=== PATIENT | female | born 2000 | race Two or more races ===

== ENCOUNTER 2023-08-07 07:57 | Outpatient (OUT) | payer OTHER, SELFPAY ==
[2023-08-07 09:26] LABS: Thyroid Stimulating Hormone 1.615 uIU/mL (0.358-3.740)
== END 2023-08-07 07:58 | disposition home or self-care (01) ==
LOC: LAB 08:00
PROVIDERS: PCP Family Medicine
DX: L63.8 Other alopecia areata (principal)
CPT/HCPCS: 36415; 84443

== ENCOUNTER 2024-05-13 21:45 | Emergency (ER) | payer OTHER, SELFPAY ==
[2024-05-13 21:49] VITALS: BP 140/87; PULSE 88; TEMP 36.5; O2SAT 100; BMI 28.3
--- OUTSIDE RECORDS SUMMARY | 2024-05-13 21:57 | XMS_ITS | CCD ---
Author Organization [facility] Care Team Providers Care Ammonia Box Operator Name Role Phone BIANCA, DR PUGA Attending Unavailable BIANCA, DR PUGA Consulting Unavailable BIANCA, DR PUGA Primary Care Unavailable BIANCA, DR PUGA Admitting Unavailable Allergies Allergy Classification Reported Allergen(s) Allergy Type Date of Onset Reaction(s) Facility (1 source) Penicillins Drug allergy (disorder) 10-12-2014 [facility] Repository Problems Active Problems Problem Classification Problem Date Documented Da te Episodic/Chronic Unclassified (2 sources) CONTACT W/AND (SUSP) EXPOS COVID-19; Translations: [CONTACT W/AND (SUSP) EXPOS COVID-19] Onset: 05-19-2021 Unclassified (1 source) COUGH, UNSPECIFIED; Translations: [COUGH, UNSPECIFIED] Onset: 05-19-2021 Viral infection (1 source) COVID-19; Translations: [COVID-19] Onset: 05-19-2021 Past or Other Problems Problem Classification Problem Date Documented Da te Episodic/Chronic Unclassified (1 source) CONTACT W/AND (SUSP) EXPOS COVID-19; Translations: [CONTACT W/AND (SUSP) EXPOS COVID-19] Onset: 05-14-2021 Results Test Name Value Interpretation Reference Range Facil ity Provider Letteron 07-12-2022 Provider Letter July 12, 2022 ASHLEY CHAUHAN [address] [phone] To Whom It May Concern, Please excuse above patient from work. Date of Illness: On: 07/12/2022 May Return to Work On: 07/13/2022 Sincerely, Eugene Granger [employer] TRIMMER[facility] [place] [address] [place] [address] [address] [facility] [place] [address] [facility] Provider Letter July 12, 2022 ASHLEY CHAUHAN [address] [facility] [address] [place] [phone] To Whom It May Concern, Please excuse above patient from work. Date of Illness: On: 07/12/2022 May Return to Work On: 07/13/2022 Sincerely, Eugene Granger ED[facility] TRIMMER[facility] [place] [address] [place] [address] [facility] Covid-19 PCR (CVDTBH)on 04-17 SARS-CoV-2 (COVID-19) RNA IRLANDA+probe Ql (Unsp spec) Detected Critically abnormal NOT DETECTED [facility] Comment on above: Result Comment: This test is not yet oralia roved or cleared by the [place] FDA. When there are no FDA-approved or cleared tests available, and other criteria are met, FDA can make tests available under an emergency access mechanism called an Emergency Use Authorization (EUA). The EUA for this test is supported by the Patient Liaison of Health and Human Service's (HHS's) declaration that circumstances exist to justify the emergency use of in vitro diagnostics for the detection and/or diagnosis of the virus that causes COVID-19. This EUA will remain in effect (meaning this test can be used) for the duration of the COVID-19 declaration justifying emergency of IVDs, unless it is terminated or revoked by FDA (after which the test may no longer be used). Performed By: #### C [facility] #### [facility] [id number] Paulino Burk Encounters Encounter Date Encounter Type Care Provider Facility Start: 07-22-2022 ambulatory Facility:[facility] Start: 05-14-2021 End: 05-14-[address] EDD VALENZUELA Facility: Payers Date Payer Category Payer Unknown [id number] 1960 Private Health Insurance [id number] Summary Purpose Family History No Family History Records FoundNo Family History Records Found Advance Directives No Advanced Directives Records FoundNo Advanced Directives Records Found Additional Source Comments INFORMATION SOURCE (unrecogn ized section and content) DATE CREATED AUTHOR 07/26/2021 [facility] DATE CREATED AUTHOR AUTHOR'S CHELSI ALMANZAR 07/23/2022 [facility] FOR RECORDS PERTAINING TO PATIENTS WHO ARE OR HAVE BEEN ENROLLED IN A CHEMICAL DEPENDENCY/SUBSTANCEABUSE PROGRAM, SOME INFORMATION MAY BE OMITTED. This clinical summary was aggregated from multiple sources. Caution should be exercised in using it in the provision of clinical care. This summary normalizes information from multiple sources, and as a consequence, information in this document may materially change the coding, format and clinical context of patient data. In addition, data may be omitted in some cases. CLINICAL DECISIONS SHOULD BE BASED ON THE PRIMARY CLINICAL RECORDS. [employer] provides no warranty or guarantee of the accuracy or completeness of information in this document.
--- NOTE | 2024-05-13 22:04 | XR_ITS ---
The [address] [address] Patient Name: ASHLEY CHAUHAN MRN: [id number] date: 2000 Sex: F Assigned Patient Location: ER Current Patient Location: ER Accession/Order Number: [id number] Exam Date: 05/13/2024 22:16 Report Date: 05/13/2024 23:15 At the request of: BRYSON MARKER Procedure: XR wrist LT min 3V EXAM: XR wrist LT min 3V HISTORY: The patient is a 24-year-old female, wrist and elbow injury s/p fall COMPARISON: None. FINDINGS: The left wrist is radiographically negative with no evidence of fracture, dislocation, cortical discontinuities, or other osseous or articular abnormalities. XR/XR wrist LT min 3V IMPRESSION: Negative. Electronically authenticated by: SHELBI DA SILVA Date: 05/13/2024 23:15
--- NOTE | 2024-05-13 22:04 | XR_ITS ---
The [address] [address] Patient Name: ASHLEY CHAUHAN MRN: [id number] date: 2000 Sex: F Assigned Patient Location: ER Current Patient Location: ER Accession/Order Number: [id number] Exam Date: 05/13/2024 22:16 Report Date: 05/13/2024 23:14 At the request of: BRYSON MARKER Procedure: XR elbow LT 2V EXAM: XR elbow LT 2V HISTORY: The patient is a 24-year-old female, elbow injury w/p fall COMPARISON: None. FINDINGS: The AP view demonstrates a small old well-corticated ossicle just distal to the medial epicondyle. This does not have the appearance of an acute fracture. 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 Otherwise, these 2 views of the left elbow are radiographically negative with no evidence of acute fractures, dislocation, fat pad elevation, or other acute osseous or articular abnormalities. XR/XR elbow LT 2V IMPRESSION: No acute osseous or articular abnormalities of the left elbow. Electronically authenticated by: SHELBI DA SILVA Date: 05/13/2024 23:14
--- NOTE | 2024-05-13 22:04 | CT_ITS ---
The [address] [address] Patient Name: ASHLEY CHAUHAN MRN: [id number] date: 2000 Sex: F Assigned Patient Location: ER Current Patient Location: ED.MAIN Accession/Order Number: [id number] Exam Date: 05/13/2024 22:16 Report Date: 05/13/2024 22:58 At the request of: BRYSON MARKER Procedure: CT head/brain wo con EXAM: CT head/brain wo con HISTORY: head injury w LOC COMPARISON: None. TECHNIQUE: Axial CT scans through the head were obtained without IV contrast administration. Dose reduction techniques were achieved by using: automated exposure control and/or adjustment of mA and /or kV according to patient size and/or use of iterative reconstruction technique. FINDINGS: There is no acute intracranial hemorrhage or abnormal extra-axial fluid collection. No mass effect or midline shift is seen. There is no evidence of large acute territorial infarction. There is no hydrocephalus. To the limit of CT, the posterior fossa appears unremarkable. The calvaria and extra cranial soft tissues are unremarkable. The visualized orbits show no abnormality. The visualized paranasal sinuses show no air-fluid level. Mastoid air cells are clear. CT/CT head/brain wo con IMPRESSION: No acute intracranial process. Electronically authenticated by: BAN VINCENT Date: 05/13/2024 22:58
--- NOTE | 2024-05-13 22:07 | ED_ITS ---
HPI HPI - Fall General Chief Complaint: Fall Stated Complaint: fall, head/arm injury-pt did pass out Time Seen by Provider: 05/13/24 21:51 Source: patient Mode of arrival: Wheelchair Limitations: no limitations History of Present Illness HPI Narrative: This 24-year-old female who is right-hand dominant presents for evaluation of a left wrist and elbow injury. She also has a posterior headache. The patient and her sisters were making a TikTok video in which they were holding out their arms and she was supposed to jump into their outstretched arms. It is unclear exactly what happened but they did not catch her and she ended up flying into a wall and striking her head against the wall. She indented the wall with her head. She was briefly unconscious. She has a posterior headache. She has no neck or back pain. She also likely struck her left wrist and elbow on a bench that was underneath the wall. She presents for evaluation of left elbow pain with decreased range of motion and pain in her left wrist. She denies the possibility of . She has not had any seizure activity. She was ambulatory after the fall. Related Data Home Medications ?Medication ?Instructions ?Recorded ?Confirmed No Known Home Medications 05/13/24 05/13/24 Allergies Allergy/AdvReac Type Severity Reaction Status Date / Time Penicillins Allergy unkown Verified 05/13/24 21:54 Opioid HPI Opioid Management Most Recent Pain and Opioid Data: Last Pain Scale 5 05/13/24 23:00 05/13/24 Last ED Pain Assessment 05/13/24 23:00 Review of Systems ROS Narrative Vital signs and Nursing Notes reviewed: Patient is afebrile with a normal pulse, blood pressure is mildly elevated 140/87, she is not hypoxic with pulse ox of 100% on room air General: Awake, alert, oriented, GCS 15, tearful female, no respiratory distress HEENT: Normocephalic, tenderness to palpation at the posterior scalp without notable step-off, hematoma, laceration or other abnormality Neck: Supple, no midline bony vertebral tenderness or step-off Chest: Lungs are clear to auscultation with good air entry, there is no wheezing rhonchi or rales appreciated no accessory muscle use, patient is speaking in complete sentences-no chest wall tenderness to palpation CVS: Regular rate and rhythm S1-S2, no murmurs rubs or gallops, pulses are brisk and equal bilaterally ABD: Soft, nondistended, nontender, no rebound guarding or rigidity, bowel sounds are normal, no pulsatile masses appreciated Extremities: Mild tenderness to the left distal radius. Patient resists range of motion. Fingers are warm and sensate. Radial pulses brisk and equal. There is also mild tenderness and swelling at the olecranon. Patient is able to fully flex but not fully extend at the elbow. No bony deformity noted in either the radius or elbow area. Skin: Normal in appearance without rash,pallor, petechiae or purpura Neuro: No focal deficits Exam Constitutional Vital Signs, click to edit/add: Last Vital Signs Temp 97.7 F 05/13/24 21:49 Pulse 88 05/13/24 21:49 Resp 14 05/13/24 21:49 BP 140/87 05/13/24 21:49 Pulse Ox 100 05/13/24 21:49 O2 Del Method Room Air 05/13/24 21:49 Course Vital Signs Vital signs: Vital Signs Temperature 97.7 F 05/13/24 21:49 Pulse Rate 88 05/13/24 21:49 Respiratory Rate 14 05/13/24 21:49 Blood Pressure 140/87 05/13/24 21:49 Pulse Oximetry 100 05/13/24 21:49 Oxygen Delivery Method Room Air 05/13/24 21:49 Temperature 97.7 F 05/13/24 21:49 Pulse Rate 88 05/13/24 21:49 Respiratory Rate 14 05/13/24 21:49 Blood Pressure 140/87 05/13/24 21:49 Pulse Oximetry 100 05/13/24 21:49 Oxygen Delivery Method Room Air 05/13/24 21:49 MDM - Fall MDM Narrative Medical decision making narrative: This 24-year-old female is brought to the emergency department for evaluation of a head injury and left wrist and elbow pain. The patient and her sisters were making a video in which she was supposed to jump into their arms but they were unable to catch her and she ended up striking her head on a wall causing an indentation in the wall. It is thought that she may have also struck her left wrist and elbow on a bench that was underneath the wall. She had brief loss of consciousness and her eyes rolled back in her head and then regained consciousness. She has not had any seizure activity or vomiting. Her neuroexam is normal. She has some tenderness with decreased range of motion in her left wrist and elbow. She was given a dose of IM morphine and oral Zofran to prevent nausea from the morphine. CT scan of her brain is negative for acute findings and x-rays of the left wrist and forearm were read by radiology as normal. She was placed in a Hernandez wrap over her left wrist for comfort and compression. After the morphine she has full range of motion of her left elbow which is in keeping with the normal x-rays and normal physical exam. I discussed with her she may have a concussion with some concussive symptoms for a period of time. I encouraged her to rest, drink plenty of fluids and she will be discharged home with 2 [place] to take as needed for pain as I felt that NSAIDs in light of a head injury was not a good idea at this time. Head injury instructions were given to the patient and her family. Medical Records Medical records narrative: The [place] [id number] Scan Report Signed Patient: ASHLEY CHAUHAN MR#: [id number] : 2000 Acct:[id number] Age/Sex: 24 / F ADM Date: 05/13/24 Loc: ER Attending Dr: Ordering Physician: Maya Arias Date of Service: 05/13/24 Procedure(s): CT head/brain wo con Accession Number(s): [id number] cc: EDD VALENZUELA ~ The [address] [address] Patient Name: ASHLEY CHAUHAN MRN: [facility]:[id number] date: 2000 Sex: F Assigned Patient Location: ER Current Patient Location: ED.MAIN Accession/Order Number: [id number] Exam Date: 05/13/2024 22:16 Report Date: 05/13/2024 22:58 At the request of: MAYA ARIAS Procedure: CT head/brain wo con EXAM: CT head/brain wo con HISTORY: head injury w LOC COMPARISON: None. TECHNIQUE: Axial CT scans through the head were obtained without IV contrast administration. Dose reduction techniques were achieved by using: automated exposure control and/or adjustment of mA and /or kV according to patient size and/or use of iterative reconstruction technique. FINDINGS: There is no acute intracranial hemorrhage or abnormal extra-axial fluid collection. No mass effect or midline shift is seen. There is no evidence of large acute territorial infarction. There is no hydrocephalus. To the limit of CT, the posterior fossa appears unremarkable. The calvaria and extra cranial soft tissues are unremarkable. The visualized orbits show no abnormality. The visualized paranasal sinuses show no air-fluid level. Mastoid air cells are clear. CT/CT head/brain wo con IMPRESSION: No acute intracranial process. The [address] [address] XRay Report Signed Patient: ASHLEY CHAUHAN MR#: [id number] : 2000 Acct:[id number] Age/Sex: 24 / F ADM Date: 05/13/24 Loc: ER Attending Dr: Ordering Physician: Maya Arias Date of Service: 05/13/24 Procedure(s): XR elbow LT 2V Accession Number(s): [id number] cc: EDD VALENZUELA ; Maya Arias~ The [address] [address] Patient Name: ASHLEY CHAUHAN MRN: [id number] date: 2000 Sex: F Assigned Patient Location: ER Current Patient Location: ER Accession/Order Number: [id number] Exam Date: 05/13/2024 22:16 Report Date: 05/13/2024 23:14 At the request of: MAYA MARKER Procedure: XR elbow LT 2V EXAM: XR elbow LT 2V HISTORY: The patient is a 24-year-old female, elbow injury w/p fall COMPARISON: None. FINDINGS: The AP view demonstrates a small old well-corticated ossicle just distal to the medial epicondyle. This does not have the appearance of an acute fracture. 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 Otherwise, these 2 views of the left elbow are radiographically negative with no evidence of acute fractures, dislocation, fat pad elevation, or other acute osseous or articular abnormalities. XR/XR elbow LT 2V IMPRESSION: No acute osseous or articular abnormalities of the left elbow. The [address] [address] XRay Report Signed Patient: ASHLEY CHAUHAN MR#: [id number] : 2000 Acct:[id number] Age/Sex: 24 / F ADM Date: 05/13/24 Loc: ER Attending Dr: Ordering Physician: Maya Arias Date of Service: 05/13/24 Procedure(s): XR wrist LT min 3V Accession Number(s): [id number] cc: EDD VALENZUELA ; Maya Arias~ The [address] [address] Patient Name: ASHLEY CHAUHAN MRN: [id number] date: 2000 Sex: F Assigned Patient Location: ER Current Patient Location: ER Accession/Order Number: [id number] Exam Date: 05/13/2024 22:16 Report Date: 05/13/2024 23:15 At the request of: MAYA MARKER Procedure: XR wrist LT min 3V EXAM: XR wrist LT min 3V HISTORY: The patient is a 24-year-old female, wrist and elbow injury s/p fall COMPARISON: None. FINDINGS: The left wrist is radiographically negative with no evidence of fracture, dislocation, cortical discontinuities, or other osseous or articular abnormalities. XR/XR wrist LT min 3V IMPRESSION: Negative. Electronically authenticated by: SHELBI DA SILVA Date: 05/13/2024 23:15 Discharge Plan Discharge Chief Complaint: Fall Clinical Impression: Concussion with loss of consciousness, Left wrist sprain, Contusion of elbow, left, Closed head injury Patient Disposition: Home, Self-Care Time of Disposition Decision: 23:24 Condition: Good Prescriptions / Home Meds: No Action No Known Home Medications Print Language: Uzbek Instructions: Wrist Injury (ED), Sprain (ED), Head Injury (ED), Contusion in Adults (ED) Referrals: EDD VALENZUELA [Primary Care Provider] - 1 week
[2024-05-13] MEDS: ONDANSETRON 4 MG RAPDIS TABLET SL (22:23)
[2024-05-13] MEDS: MORPHINE SULFATE 4 MG/ML VIAL IM (22:24)
[2024-05-13] MEDS: HYDROCODONE/ACET 5-325 MG TABLET 2 TAB PO (23:30)
== END 2024-05-13 23:40 | disposition home or self-care (01) ==
PROVIDERS: Emergency Provider Emergency Medicine; PCP Family Medicine
DX: S06.0X1A Concussion with loss of consciousness of 30 minutes or less, initial encounter (principal); S63.502A Unspecified sprain of left wrist, initial encounter; S50.02XA Contusion of left elbow, initial encounter; W22.01XA Walked into wall, initial encounter
CPT/HCPCS: 70450; 73070; 73110; 96372; 99284; J2270; Q0162

== ENCOUNTER 2024-10-10 16:39 | Emergency (ER) | payer OTHER, SELFPAY ==
[2024-10-10 16:47] VITALS: BP 118/72; PULSE 82; TEMP 37; O2SAT 100; BMI 28.3
--- NOTE | 2024-10-10 17:04 | ED.FEMALEGU1 ---
HPI - Female Genitourinary General Chief complaint: Vaginal Bleeding Stated complaint: Bleeding VAGINAL Time Seen by Provider: 10/10/24 16:53 Source: patient Mode of arrival: walk-in Limitations: no limitations History of Present Illness HPI Narrative: Patient is a 24-year-old female presents to the ER with concerns of irregular vaginal bleeding. Patient states she is sexually active she has never been . Home test have been negative. She denies any control use. She reports bleeding for 10 days last month and for this month has been bleeding for 16 days. She reports her normal cycle was only 4 to 5 days of bleeding. She has been using light tampons changing approximately every 4-5 hours but they are not fully saturated. She denies any pelvic pain or vaginal discharge. She denies any dysuria. Patient is unsure of why her periods have become irregular. Patient notes a week ago so ago she did pass a clot that was a larger. Patient appears nervous about the possibility of irregular menses. MD elicited complaint: Reports vaginal bleeding; Denies dysuria, UTI , vaginal discharge, pelvic pain, genital swelling, flank pain or urinary incontinence Pertinent past history: Denies prior miscarriages Onset (ago): hour(s) Female Urogenital Radiation: Denies Non-Radiating Quality of pain: Denies cramping or sharp Consistency: Denies constant Vaginal discharge: Denies none or white Vaginal bleeding: Reports scant Urinary symptoms: Denies Dysuria or Urgency Exacerbating factors: Denies none Associated symptoms: Denies denies other symptoms Treatment prior to arrival: Denies none Sexual activity: Reports Yes Patient : No Possible : Reports at home test negative Related Data Home Medications ?Medication ?Instructions ?Recorded ?Confirmed No Known Home Medications 05/13/24 10/10/24 Allergies Allergy/AdvReac Type Severity Reaction Status Date / Time Penicillins Allergy unkown Verified 05/13/24 21:54 Review of Systems ROS Constitutional Denies: fever or chills Eyes Denies: change in vision or blurry vision Ears, nose, mouth, and throat Denies: throat pain or neck pain Cardiovascular Denies: chest pain or palpitations Respiratory Denies: shortness of breath or cough Gastrointestinal Denies: abdominal pain, nausea or vomiting Genitourinary Reports: vaginal bleeding and irregular period; Denies: painful urination, urinary frequency, urinary urgency or vaginal discharge Musculoskeletal Denies: back pain or neck pain Integumentary/Breast Denies: rash or itching Neurological Denies: headache Psychiatric Denies: anxiety Endocrine Denies: excessive urination PFSH PFSH Social History Little interest or pleasure in doing things: not at all Feeling down, depressed, or hopeless: not at all Exam Narrative Exam Narrative: Nurses notes and vital signs reviewed and patient is not hypoxic. General: The patient appears well and in no apparent distress. Patient is resting comfortably on cart. Skin: Warm, dry, no pallor noted. Head: Normocephalic, atraumatic Neck: Supple, trachea mid-line, no tenderness, no lymphadenopathy Eye: Pupils are equal, round and reactive to light, EOMI Ears, Nose, Mouth, and Throat: External exam unremarkable Cardiovascular: Regular Rate and Rhythm Respiratory: Patient is in no distress, no accessory muscle use, lungs are clear to auscultation, no wheezing, rales or rhonchi. Chest Wall: no tenderness Back: non-tender, no CVA tenderness Musculoskeletal: normal ROM, no tenderness, no swelling GI: Normal bowel sounds, no tenderness to palpation, no masses appreciated. No rebound, guarding, or rigidity noted. She denies pelvic pain Neurological: A&O x4 Psychiatric: Cooperative Constitutional Vital Signs, click to edit/add: Last Vital Signs Temp 98.6 F 10/10/24 16:47 Pulse 82 10/10/24 16:47 Resp 16 10/10/24 16:47 BP 118/72 10/10/24 16:47 Pulse Ox 100 10/10/24 16:47 O2 Del Method Room Air 10/10/24 16:47 Course Vital Signs Vital signs: Vital Signs Temperature 98.6 F 10/10/24 16:47 Pulse Rate 82 10/10/24 16:47 Respiratory Rate 16 10/10/24 16:47 Blood Pressure 118/72 10/10/24 16:47 Pulse Oximetry 100 10/10/24 16:47 Oxygen Delivery Method Room Air 10/10/24 16:47 Temperature 98.6 F 10/10/24 16:47 Pulse Rate 82 10/10/24 16:47 Respiratory Rate 16 10/10/24 16:47 Blood Pressure 118/72 10/10/24 16:47 Pulse Oximetry 100 10/10/24 16:47 Oxygen Delivery Method Room Air 10/10/24 16:47 MDM - Female Genitourinary MDM Narrative Medical decision making narrative: Patient presents with history of recent abnormal uterine bleeding. She denies any pelvic pain or discomfort. She has taken home test have been negative. She is concerned with passage of a clot last week and states she is currently just spotting. She does not see an LEGAL DEPARTMENT MANAGER. She appears concerned about the possibility of but otherwise in no distress. CBC and hCG quant/ urinalysis discussed. No evidence of . We discussed her irregular vaginal bleeding. She denies any pelvic pain or discharge she declines pelvic exam today with procedure discussed. Patient thankful for lab work performed agrees to follow-up with local industrial spraypainter for ongoing evaluation and potential treatments. The patient is to followup with OBGYN as soon as possible for eval within the week would be ok. . primary care physician in next 5-7 days or to return to the emergency department should any of the signs or symptoms worsen or new symptoms develop. Patient had questions answered. The patient agrees with the following Diagnosis and Treatment plan and the patient will be discharged home. Lab Data Attestation: I reviewed the patient's lab results. Labs: Lab Results 10/10/24 10/10/24 Range/Units 17:05 17:10 WBC 8.6 (4.0-11.0) 10^3/uL RBC 4.34 (4.20-5.40) 10^6/uL Hgb 13.8 (12.0-16.0) g/dL Hct 41.0 (36.0-48.0) % MCV 94.5 (81.0-99.0) fL MCH 31.8 (26.7-34.0) pg MCHC 33.7 (29.9-35.2) g/dL RDW 12.9 (11.0-15.0) % Plt Count 340 (150-450) 10^3/uL MPV 9.6 (9.5-13.5) fL Neut % (Auto) 57.1 (43.0-75.0) % Lymph % (Auto) 32.2 (20.5-60.0) % Caroline % (Auto) 7.0 (1.7-12.0) % Eos % (Auto) 3.1 (0.9-7.0) % Baso % (Auto) 0.5 (0.2-2.0) % Neut # (Auto) 4.9 (1.4-6.5) 10^3/uL Lymph # (Auto) 2.8 (1.2-3.8) 10^3/uL Caroline # (Auto) 0.6 (0.3-0.8) 10^3/uL Eos # (Auto) 0.3 (0.0-0.7) 10^3/uL Baso # (Auto) 0.0 (0.0-0.1) 10^3/uL Abs Immat Gran (auto) 0.01 (0.00-0.03) 10^3/uL Imm/Tot Granulo (auto) 0.1 (0.0-0.5) % HCG, Quant <1 mIU/mL Urine Color Lt. yellow (YELLOW) Urine Clarity Clear (CLEAR) Urine pH 7.5 (5.0-9.0) Ur Specific [place] 1.010 (1.005-1.025) Urine Protein Negative (NEG/TRACE) mg/dL Urine Glucose (UA) Negative (NEGATIVE) mg/dL Urine Ketones Negative (NEGATIVE) mg/dL Urine Occult Blood Negative (NEGATIVE) Urine Nitrite Negative (NEGATIVE) Urine Bilirubin Negative (NEGATIVE) Urine Urobilinogen 0.2 (0.2-1.0) EU/dL Ur Leukocyte Esterase Negative (NEGATIVE) Discharge Plan Discharge Chief Complaint: Vaginal Bleeding Clinical Impression: Abnormal uterine bleeding (AUB) Patient Disposition: Home, Self-Care Time of Disposition Decision: 17:38 Condition: Good Prescriptions / Home Meds: No Action No Known Home Medications Print Language: Prydeinig Instructions: Abnormal (Dysfunctional) Uterine Bleeding (ED) Additional Instructions: Contact Dr. Hoover's office friday for appt this week or next Return to ER if bleeding increase. 3 pad and hour for 3 hours is too much bleeding. would need to be seen in ER Please return to ER if symptoms worsen or new symptoms develop. Referrals: Trav Hoover DO [Physician] - As soon as possible EDD VALENZUELA [Primary Care Provider] - 1 week
[2024-10-10 17:14] LABS: Bilirubin Urine NEGATIVE (NEGATIVE); Blood Urine NEGATIVE (NEGATIVE); Clarity Urine CLEAR (CLEAR); Color Urine LT. YELLOW (YELLOW); Glucose Urine UA NEGATIVE (NEGATIVE); Ketones Urine NEGATIVE (NEGATIVE); Leukocyte Esterase Urine NEGATIVE (NEGATIVE); Nitrite Urine NEGATIVE (NEGATIVE); Protein Urine NEGATIVE (NEG/TRACE); Urine Microscopic Indicated NO; Urobilinogen Urine 0.2 EU/dL (0.2-1.0); pH Urine 7.5 (5.0-9.0)
[2024-10-10 17:14] LABS: Basophils Percent Auto 0.5 % (0.2-2.0); Eosinophils Absolute Auto 0.3 10^3/uL (0.0-0.7); Eosinophils Percent Auto 3.1 % (0.9-7.0); Hemoglobin 13.8 g/dL (12.0-16.0); Immature Granulocytes Abs Auto 0.01 10^3/uL (0.00-0.03); Immature Granulocytes Pct Auto 0.1 % (0.0-0.5); Lymphocytes Absolute Auto 2.8 10^3/uL (1.2-3.8); Lymphocytes Percent Auto 32.2 % (20.5-60.0); Mean Corpuscular HGB Conc 33.7 g/dL (29.9-35.2); Mean Corpuscular Hemoglobin 31.8 pg (26.7-34.0); Mean Corpuscular Volume 94.5 fL (81.0-99.0); Mean Platelet Volume 9.6 fL (9.5-13.5); Monocytes Absolute Auto 0.6 10^3/uL (0.3-0.8); Neutrophils Absolute Auto 4.9 10^3/uL (1.4-6.5); Neutrophils Percent Auto 57.1 % (43.0-75.0); Platelet Count 340 10^3/uL (150-450); Red Blood Count 4.34 10^6/uL (4.20-5.40); Red Cell Distribution Width 12.9 % (11.0-15.0); White Blood Count 8.6 10^3/uL (4.0-11.0)
[2024-10-10 17:33] LABS: HCG Quantitative <1 mIU/mL
== END 2024-10-10 17:47 | disposition home or self-care (01) ==
PROVIDERS: Personal Emergency Response Attendant; Emergency Provider Emergency Medicine; PCP Family Medicine
DX: N93.9 Abnormal uterine and vaginal bleeding, unspecified (principal)
CPT/HCPCS: 36415; 81003; 84702; 85025; 99284

== ENCOUNTER 2024-10-23 20:47 | Emergency (ER) | payer OTHER, SELFPAY ==
[2024-10-23 20:51] VITALS: BP 115/84; PULSE 71; TEMP 36.6; O2SAT 99; BMI 28.3
--- OUTSIDE RECORDS SUMMARY | 2024-10-23 20:51 | XMS_ITS | CCD ---
Author Organization [facility] Care Team Providers Care Lodge Attendant Name Role Phone BIANCA, DR PUGA Attending Unavailable BIANCA, DR PUGA Consulting Unavailable BIANCA, DR PUGA Primary Care Unavailable BIANCA, DR PUGA Admitting Unavailable Allergies Allergy Classification Reported Allergen(s) Allergy Type Date of Onset Reaction(s) Facility (1 source) Penicillins Drug allergy (disorder) 10-12-2014 [facility] Repository Problems Active Problems Problem Classification Problem [...] Letter July 12, 2022 ASHLEY CHAUHAN [address] [phone] To Whom It May Concern, Please excuse above patient from work. Date of Illness: On: 07/12/2022 May Return to Work On: 07/13/2022 Sincerely, Eugene Granger HIDES SOAKER-C [facility] [place] [address] [place] [address] Route [facility] [place] [address] [facility] Provider Letter July 12, 2022 ASHLEY CHAUHAN [address] [facility] [address] [place] [phone] To Whom It May Concern, Please excuse above patient from work. Date of Illness: On: 07/12/2022 May Return to Work On: 07/13/2022 Sincerely, Eugene Granger HIDES SOAKER-C [facility] [place] [address] [place] [address] Alyssa Aleman [facility] Covid-19 PCR (CVDTBH)on 04-17 SARS-CoV-2 (COVID-19) RNA IRLANDA+probe Ql (Unsp spec) Detected Critically abnormal NOT DETECTED [facility] Comment on above: Result Comment: This test is not yet oralia roved or cleared by the [place] FDA. When there are no FDA-approved or cleared tests available, and other criteria are met, FDA can make tests available under an emergency access mechanism called an Emergency Use Authorization (EUA). The EUA for this test is supported by the Solutions Analyst of Health and Human Service's (HHS's) declaration [...] used). Performed By: #### C [facility] #### [facility] [id number] Paluino Burk Encounters Encounter Date Encounter Type Care Provider Facility Start: 07-22-2022 ambulatory [facility] Start: 05-14-2021 End: 05-14-[address] EDD VALENZUELA Facility: Payers Date Payer Category Payer Unknown [id number] 1960 Private Health Insurance [id number] Summary Purpose Family History No Family History Records FoundNo Family History Records Found Advance Directives No Advanced Directives Records FoundNo Advanced Directives Records Found Additional Source Comments INFORMATION SOURCE (unrecogn ized section and content) DATE CREATED AUTHOR 07/26/2021 [facility] DATE CREATED AUTHOR AUTHOR'S CHELSI ALMANZAR 07/23/2022 [facility] FOR RECORDS PERTAINING TO PATIENTS WHO ARE [...] BE BASED ON THE PRIMARY CLINICAL RECORDS. [employer] provides no warranty or guarantee of the accuracy or completeness of information in this document.
--- NOTE | 2024-10-23 21:01 | ED_ITS ---
HPI - Female Genitourinary General Chief complaint: Vaginal Bleeding Stated complaint: VAGINAL BLEEDING Time Seen by Provider: 10/23/24 20:57 Source: patient Mode of arrival: walk-in Limitations: no limitations History of Present Illness HPI Narrative: seen 10 days ago for vaginal bleeding. States bleeding about 16 days at that time. States she continues to bleed which she feels increased over past 3 days. No lightheadedness. No abdominal pain.Has upcoming appointment with gynecology 11/15/24 but did not feel she could wait that long. Does not take blood thinners Related Data Home Medications ?Medication ?Instructions ?Recorded ?Confirmed No Known Home Medications 05/13/2409/15 Allergies Allergy/AdvReac Type Severity Reaction Status Date / Time Penicillins Allergy unkown Verified 05/13/24 21:54 Review of Systems ROS Status of ROS 10 or more systems reviewed and unremark able except as noted in history and below PFSH PFSH Social History Little interest or pleasure in doing things: not at all Feeling down, depressed, or hopeless: not at all Exam Constitutional Vital Signs, click to edit/add: Last Vital Signs Temp 98 F 10/23/24 20:51 Pulse 67 10/23/24 21:21 Resp 18 10/23/24 20:51 BP 115/66 10/23/24 21:21 Pulse Ox 99 10/23/24 20:51 O2 Del Method Room Air 10/23/24 20:51 Common normals: no apparent distress, average body habitus, oriented x3, no limitations, healthy appearing, alert and well nourished [facility] Common normals: normocephalic and head/scalp atraumatic Eye Common normals: PERRL and EOMs intact bilaterally Respiratory Common normals: normal respiratory effort, no retractions, no use of accessory muscles and clear to auscultation bilaterally Cardio Common normals: regular rate, regular rhythm, S1 normal heart sound and S2 normal heart sound GI Common normals: Normal to inspection, nondistended, normoactive bowel sounds present, soft to palpation and non-tender Common normals: external appearance normal and appearance of the vagina normal Other: few clots in the vault that cleared easily. one clot coming out of the cervix. no active bleeding Extremity Common normals: normal to inspection and full ROM Neuro Common normals: oriented x3, CN's II-XII intact bilaterally, moves all extremities and no focal motor deficits Psych Appearance: grossly normal Course Vital Signs Vital signs: Vital Signs Temperature 98 F 10/23/24 20:51 Pulse Rate 71 10/23/24 20:51 Respiratory Rate 18 10/23/24 20:51 Blood Pressure 115/84 10/23/24 20:51 Pulse Oximetry 99 10/23/24 20:51 Oxygen Delivery Method Room Air 10/23/24 20:51 Temperature 98 F 10/23/24 20:51 Pulse Rate 67 10/23/24 21:21 Respiratory Rate 18 10/23/24 20:51 Blood Pressure 115/66 10/23/24 21:21 Pulse Oximetry 99 10/23/24 20:51 Oxygen Delivery Method Room Air 10/23/24 20:51 MDM - Female Genitourinary MDM Narrative Medical decision making narrative: presents with vagina bleeding. No associated pain. Pelvic exam with few clots in the vaginal vault that cleared easily. H/H WNL. Patient reassured and is to follow up with Gynecology friday Lab Data Labs: Lab Results 10/23/24 Range/Units 21:18 WBC 9.1 (4.0-11.0) 10^3/uL RBC 4.15 L (4.20-5.40) 10^6/uL Hgb 13.0 (12.0-16.0) g/dL Hct 38.3 (36.0-48.0) % MCV 92.3 (81.0-99.0) fL MCH 31.3 (26.7-34.0) pg MCHC 33.9 (29.9-35.2) g/dL RDW 12.4 (11.0-15.0) % Plt Count 335 (150-450) 10^3/uL MPV 9.5 (9.5-13.5) fL Neut % (Auto) 58.6 (43.0-75.0) % Lymph % (Auto) 29.7 (20.5-60.0) % [place] % (Auto) 8.5 (1.7-12.0) % Eos % (Auto) 2.4 (0.9-7.0) % Baso % (Auto) 0.6 (0.2-2.0) % Neut # (Auto) 5.3 (1.4-6.5) 10^3/uL Lymph # (Auto) 2.7 (1.2-3.8) 10^3/uL [place] # (Auto) 0.8 (0.3-0.8) 10^3/uL Eos # (Auto) 0.2 (0.0-0.7) 10^3/uL Baso # (Auto) 0.1 (0.0-0.1) 10^3/uL Abs Immat Gran (auto) 0.02 (0.00-0.03) 10^3/uL Imm/Tot Granulo (auto) 0.2 (0.0-0.5) % Sodium 138 (136-145) mmol/L Potassium 4.0 (3.5-5.1) mmol/L Chloride 104 (98-107) mmol/L Carbon Dioxide 26.3 (21.0-32.0) mmol/L Anion Gap 11.7 BUN 21.0 H (7.0-18.0) mg/dL Creatinine 0.75 (0.55-1.02) mg/dL Est GFR ( Amer) >60 (>=60 mL/min/1.73m^2) Est GFR (Non-Af Amer) >60 (>=60 mL/min/1.73m^2) BUN/Creatinine Ratio 28.0 Glucose 100 (74-106) mg/dL Calcium 8.9 (8.5-10.1) mg/dL Serum HCG, Qual Negative (NEGATIVE) Discharge Plan Discharge Chief Complaint: Vaginal Bleeding Clinical Impression: Abnormal uterine bleeding (AUB) Patient Disposition: Home, Self-Care Prescriptions / Home Meds: No Action No Known Home Medications Print Language: Gibraltarian Instructions: Menorrhagia (ED) Additional Instructions: follow up with Gynecology friday Referrals: EDD VALENZUELA [Primary Care Provider, Family Practice] - 1 week
[2024-10-23 21:21] VITALS: BP 108/84; BP 115/66; BP 119/84; PULSE 67; PULSE 70; PULSE 71
[2024-10-23 21:23] LABS: Basophils Absolute Auto 0.1 10^3/uL (0.0-0.1); Basophils Percent Auto 0.6 % (0.2-2.0); Eosinophils Absolute Auto 0.2 10^3/uL (0.0-0.7); Eosinophils Percent Auto 2.4 % (0.9-7.0); Hematocrit 38.3 % (36.0-48.0); Immature Granulocytes Abs Auto 0.02 10^3/uL (0.00-0.03); Immature Granulocytes Pct Auto 0.2 % (0.0-0.5); Lymphocytes Absolute Auto 2.7 10^3/uL (1.2-3.8); Lymphocytes Percent Auto 29.7 % (20.5-60.0); Mean Corpuscular HGB Conc 33.9 g/dL (29.9-35.2); Mean Corpuscular Hemoglobin 31.3 pg (26.7-34.0); Mean Corpuscular Volume 92.3 fL (81.0-99.0); Mean Platelet Volume 9.5 fL (9.5-13.5); Monocytes Absolute Auto 0.8 10^3/uL (0.3-0.8); Monocytes Percent Auto 8.5 % (1.7-12.0); Neutrophils Absolute Auto 5.3 10^3/uL (1.4-6.5); Neutrophils Percent Auto 58.6 % (43.0-75.0); Platelet Count 335 10^3/uL (150-450); Red Blood Count 4.15 10^6/uL (4.20-5.40); Red Cell Distribution Width 12.4 % (11.0-15.0); White Blood Count 9.1 10^3/uL (4.0-11.0)
[2024-10-23 21:33] LABS: Anion Gap 11.7; Calcium 8.9 mg/dL (8.5-10.1); Carbon Dioxide 26.3 mmol/L (21.0-32.0); Chloride 104 mmol/L (98-107); Estimated GFR (African America >60 (>=60 mL/min/1.73m^2); Estimated GFR (Non-African Ame >60 (>=60 mL/min/1.73m^2); Glucose 100 mg/dL (74-106); Sodium 138 mmol/L (136-145)
[2024-10-23 21:40] LABS: HCG Qualitative NEGATIVE (NEGATIVE); Internal Control Within Normal Limits
== END 2024-10-23 22:21 | disposition home or self-care (01) ==
PROVIDERS: Emergency Provider Internal Medicine; PCP Family Medicine
DX: N93.9 Abnormal uterine and vaginal bleeding, unspecified (principal)
CPT/HCPCS: 36415; 80048; 84703; 85025; 99284

== ENCOUNTER 2024-10-26 12:01 | Outpatient (OUT) | payer OTHER, SELFPAY ==
--- OUTSIDE RECORDS SUMMARY | 2024-10-26 12:17 | XMS_ITS | CCD ---
Author Organization [facility] Care Team Providers Care Sammying Machine Operator Name Role Phone BIANCA, DR PUGA Attending Unavailable BIANCA, DR PUGA Consulting Unavailable BIANCA, DR PUGA Primary Care Unavailable BIANCA, DR PUGA Admitting Unavailable Allergies Allergy Classification Reported Allergen(s) Allergy Type Date of Onset Reaction(s) Facility (1 source) Penicillins Drug allergy (disorder) 10-12-[address] [facility] Repository Problems Active Problems Problem [...] July 12, 2022 ASHLEY CHAUHAN [address] [phone] To Whom It May Concern, Please excuse above patient from work. Date of Illness: On: 07/12/2022 May Return to Work On: 07/13/2022 Sincerely, Eugene Granger TELECOM SALES CONSULTANT-C [facility] [place] [address] [place] [address] [address] [facility] [address] [facility] Provider Letter July 12, 2022 ASHLEY CHAUHAN [address] [facility] [address] [place] [phone] To Whom It May Concern, Please excuse above patient from work. Date of Illness: On: 07/12/2022 May Return to Work On: 07/13/2022 Sincerely, Eugene Granger TELECOM SALES CONSULTANT-C [facility] [place] [address] [place] [address] Alyssa Aleman [facility] Covid-19 PCR (CVDTBH)on 04-17 SARS-CoV-2 (COVID-19) RNA IRLANDA+probe Ql (Unsp spec) Detected Critically abnormal NOT DETECTED [facility] Comment on above: Result Comment: This test is not yet oralia roved or cleared by the [place] FDA. When there are no FDA-approved or cleared tests available, and other criteria are met, FDA can make tests available under an emergency access mechanism called an Emergency Use Authorization (EUA). The EUA for this test is supported by the Sausage Cutter of Health and Human Service's (HHS's) declaration [...] used). Performed By: #### C [facility] #### [facility] [id number] Paulino Burk Encounters Encounter Date Encounter Type Care Provider Facility Start: 07-22-2022 ambulatory [facility] Start: 05-14-2021 End: 05-14-[address] EDD VALENZUELA Facility: Payers Date Payer Category Payer Unknown [id number] 1960 Private Health Insurance [id number] Summary Purpose Family History No Family History Records FoundNo Family History Records Found Advance Directives No Advanced Directives Records FoundNo Advanced Directives Records Found Additional Source Comments INFORMATION SOURCE (unrecogn ized section and content) DATE CREATED AUTHOR 07/26/2021 [facility] DATE CREATED AUTHOR AUTHOR'S CHELSI ALMANZAR 07/23/2022 [facility] FOR RECORDS PERTAINING TO PATIENTS WHO [...] BE BASED ON THE PRIMARY CLINICAL RECORDS. [employer] provides no warranty or guarantee of the accuracy or completeness of information in this document.
[2024-10-26 12:34] LABS: Estimated Average Glucose 108 mg/dL; Glycohemoglobin A1C 5.4 % (4.5-6.2)
[2024-10-26 12:39] LABS: Thyroid Stimulating Hormone 5.121 uIU/mL (0.358-3.740)
[2024-10-26 12:48] LABS: Basophils Absolute Auto 0.1 10^3/uL (0.0-0.1); Basophils Percent Auto 0.4 % (0.2-2.0); Eosinophils Absolute Auto 0.3 10^3/uL (0.0-0.7); Eosinophils Percent Auto 2.9 % (0.9-7.0); Hematocrit 35.5 % (36.0-48.0); Hemoglobin 12.1 g/dL (12.0-16.0); Immature Granulocytes Abs Auto 0.03 10^3/uL (0.00-0.03); Immature Granulocytes Pct Auto 0.3 % (0.0-0.5); Lymphocytes Absolute Auto 4.5 10^3/uL (1.2-3.8); Lymphocytes Percent Auto 39.6 % (20.5-60.0); Mean Corpuscular HGB Conc 34.1 g/dL (29.9-35.2); Mean Corpuscular Hemoglobin 31.8 pg (26.7-34.0); Mean Corpuscular Volume 93.4 fL (81.0-99.0); Mean Platelet Volume 9.7 fL (9.5-13.5); Monocytes Absolute Auto 0.8 10^3/uL (0.3-0.8); Monocytes Percent Auto 6.5 % (1.7-12.0); Neutrophils Absolute Auto 5.8 10^3/uL (1.4-6.5); Neutrophils Percent Auto 50.3 % (43.0-75.0); Platelet Count 340 10^3/uL (150-450); Red Cell Distribution Width 12.2 % (11.0-15.0); White Blood Count 11.5 10^3/uL (4.0-11.0)
[2024-10-26 12:53] LABS: HCG Quantitative <1 mIU/mL
[2024-10-26 12:56] LABS: INR 1.04; Partial Thromboplastin Time 32.2 sec (22.3-36.2)
[2024-10-26 13:33] LABS: Free T4 1.09 ng/dL (0.76-1.46)
== END 2024-10-26 12:02 | disposition home or self-care (01) ==
LOC: LAB 12:03
PROVIDERS: PCP Family Medicine; Visit Provider Physician Assistant
DX: N92.0 Excessive and frequent menstruation with regular cycle (principal)
CPT/HCPCS: 36415; 83036; 84439; 84443; 84702; 85025; 85610; 85730